=== PATIENT | female | born 1950 | race Caucasian/White ===

== ENCOUNTER → 2017-10-20 | Outpatient (CLI) | payer BC ==
--- NOTE | 2017-10-20 16:38 | CT ---
EXAMINATION TYPE: CT brain wo con DATE OF EXAM: 10/20/2017 COMPARISON: NONE HISTORY: 67-year-old female headache, migraine x3 days TECHNIQUE: Examination was done in axial plane without intravenous contrast. Coronal and sagittal r econstructions performed. CT DLP: 1138 mGycm Automated exposure control for dose reduction was used. FINDINGS: There is no evidence of acute intracranial hemorrhage, acute ischemic changes, mass, mass-effect, or extra-axial fluid collection. There is no effacement of cerebral sulci or basal subarachnoid cister ns. There is no hydrocephalus. There is no midline shift. Wiggins-white matter distinction is preserv ed. Paranasal sinuses and mastoid air cells well pneumatized. Orbits and globes are intact. IMPRESSION: No acute intracranial abnormality seen.
== END | disposition home or self-care (01) ==
LOC: RADCTMAIN 16:14
PROVIDERS: ATTEND Family Medicine
DX: R51 Headache (principal); Z88.0 Allergy status to penicillin
CPT/HCPCS: 70450

== ENCOUNTER → 2017-11-14 | Outpatient (CLI) | payer BC ==
--- NOTE | 2017-11-14 18:00 | US ---
EXAMINATION TYPE: US venous doppler duplex LE RT DATE OF EXAM: 11/14/2017 5:39 PM COMPARISON: NONE CLINICAL HISTORY: M79.604 Pain in right leg. SIDE PERFORMED: Right TECHNIQUE: The lower extremity deep venous system is examined utilizing real time linear array sonog mimi with graded compression, doppler sonography and color-flow sonography. VESSELS IMAGED: External Iliac Vein (EIV) Common Femoral Vein Deep Femoral Vein Greater Saphenous Vein * Femoral Vein Popliteal Vein Small Saphenous Vein * Proximal Calf Veins (* superficial vessels) Right Leg: Negative for DVT Bakers cyst measuring 6.2 x 1.6 x 3.1cm IMPRESSION: There is a popliteal cyst. No evidence of deep venous thrombosis in the right leg.
== END | disposition home or self-care (01) ==
LOC: RADUSMAIN 17:07
PROVIDERS: ATTEND Physician Assistant
DX: M71.21 Synovial cyst of popliteal space [Baker], right knee (principal)

== ENCOUNTER 2017-11-17 12:25 | Emergency (ER) | payer BC ==
[2017-11-17 13:01] VITALS: BP 160/75; PULSE 86; RESP 18; TEMP 98.6
--- NOTE | 2017-11-17 13:48 | ED ---
Extremity Problem HPI <Merrill Caputo - Last Filed: 11/17/17 14:12> - General Source: patient, RN notes reviewed Mode of arrival: ambulatory Limitations: no limitations <Clair Gupta - Last Filed: 11/17/17 14:18> - General Chief complaint: Extremity Problem,Nontraumatic Stated complaint: R Leg Pain Time Seen by Provider: 11/17/17 13:29 - History of Present Illness Initial comments: This is a 67-year-old female who presents to the emergency department with request for pain medication. Patient states that she has been having right lower extremity pain and swelling. Last Friday she had an ultrasound venous Doppler that revealed no evidence for an acute DVT. However, it did reveal a Coats's cyst. Patient states that she has an appointment with orthopedics scheduled for Friday. She states that her primary care provider prescribed her tramadol but that it has not been providing any relief. She states she has also been taking Tylenol and ibuprofen. Patient requests pain medication until she is able to follow-up with orthopedics on Friday. Patient denies any worsening of her symptoms. Denies fever, chills, chest pain, shortness of breath , abdominal pain, nausea or vomiting, constipation or diarrhea, dysuria or hematuria, numbness or tingling, headache or vision changes. (Clair Gupta) - Related Data Home Medications Medication Instructions Recorded Confirmed Aspirin [Adult Low Dose Aspirin EC] 81 mg PO QAM 11/30/15 11/30/15 Cetirizine HCl [Zyrtec] 5 mg PO QAM 11/30/15 11/30/15 Hydrochlorothiazide 25 mg PO QAM 11/30/15 11/30/15 Ibuprofen [Motrin] 200 mg PO Q8HR PRN 11/30/15 11/30/15 Krill/Om-3/Dha/Epa/Phospho/Ast 1 each PO 1800 11/30/15 11/30/15 [[place]-3 Krill Oil 300 mg Sfgl] Lisinopril [Zestril] 10 mg PO HS 11/30/15 11/30/15 Multivitamins, Thera [Multivitamin] 1 tab PO 1300 11/30/15 11/30/15 predniSONE [Prednisone] 5 mg PO Q48H 11/30/15 11/30/15 Allergies Allergy/AdvReac Type Severity Reaction Status Date / Time Penicillins Allergy Rash/Hives Verified 11/17/17 13:01 Review of Systems ROS Other: All systems not noted in ROS Statement are negative. <Merrill Caputo - Last Filed: 11/17/17 14:12> ROS Other: All systems not noted in ROS Statement are negative. <Clair Gupta - Last Filed: 11/17/17 14:18> ROS Statement: Those systems with pertinent positive or pertinent negative responses have been documented in the HPI. 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 History of Any Multi-Drug Resistant Organisms: None Reported Past Surgical History: Cholecystectomy, Hysterectomy, Orthopedic Surgery Additional Past Surgical History / Comment(s): sx: 1994 hysterectomy, bilateral knees scoped, biopsy to let nondenominational to confirm vascularitis Past Anesthesia/Blood Transfusion Reactions: Postoperative Nausea & Vomiting ( PONV) Past Psychological History: No Psychological Hx Reported Smoking Status: Never smoker Past Alcohol Use History: None Reported Past Drug Use History: None Reported - Past Family History Mother Additional Family Medical History / Comment(s): "TB at 20 but neg for 65 years until she passed" Father Additional Family Medical History / Comment(s): "scarlet fever at 16 & then had a heart condition after that" <Clair Gupta - Last Filed: 11/17/17 14:18> General Exam <Merrill Caputo - Last Filed: 11/17/17 14:12> Limitations: no limitations <Clair Gupta - Last Filed: 11/17/17 14:18> - General Exam Comments Initial Comments: General: Awake and alert, well-developed; in no apparent distress. Sitting on ED stretcher with right leg fully extended in front of her. HEENT: Head atraumatic, normocephalic. Pupils are equal, round and reactive to light. Extraocular movements intact. Oropharynx moist without erythema or exudate. Neck: Supple. Normal ROM. Cardiovascular: Regular rate and rhythm. No murmurs, rubs or gallops. Chest symmetrical. Respiratory: Lungs clear to auscultation bilaterally. No wheezes, rales or rhonchi. Normal respiratory effort with no use of accessory muscles. . Musculoskeletal: Normal range of motion of bilateral upper and lower extremities. There is tenderness on palpation at posterior lateral right knee. Sensation is intact. Pedal pulses are 2+ equal and palpable bilaterally. Skin: Dawson, warm and dry without rashes or lesions. Neurological: Alert and oriented x3. CN II-XII grossly intact. Speech is fluent and answers are appropriate. No focal neuro deficits. Psychiatric: Normal mood and affect. No overt signs of depression or anxiety noted. (Clair Gupta) Course <Merrill Caputo - Last Filed: 11/17/17 14:12> <Clair Gupta - Last Filed: 11/17/17 14:18> Vital Signs 11/17/17 12:58 Temperature 98.6 F Pulse Rate 86 Respiratory 18 Rate Blood Pressure 160/75 O2 Sat by Pulse 98 Oximetry - Reevaluation(s) Reevaluation #1: 11/17/17 14:12 PA supervision did personally do a [id number] evaluation the patient did discuss findings with her. She does demonstrate tenderness palpation over the knee consistent with a Coats's cyst. She does have an appointment in [address] Cavanaugh. She will be given appropriate pain medication she is a follow- up as planned. (Merrill Caputo) Medical Decision Making <Merrill Caputo - Last Filed: 11/17/17 14:12> <Clair Gupta - Last Filed: 11/17/17 14:18> - Medical Decision Making This is a 67-year-old female who presents to the emergency department with request for pain medication. Patient states that she was diagnosed with a Coats 's cyst in her right lower extremity last Friday. She has a follow-up appointment with orthopedics scheduled for this . Patient states that her prescription of tramadol is not providing any relief. This case was discussed with attending physician, Dr. Caputo who also evaluated the patient. She will be given a Tylenol #3 starter pack. She is to follow-up with Dr. Cavanaugh on Friday as scheduled. Patient is in no acute distress and will be discharged home. She is in agreement and voices understanding. All questions were answered. (Clair Gupta) Disposition <Merrill Caputo - Last Filed: 11/17/17 14:12> Time of Disposition: : <Clair Gupta - Last Filed: 11/17/17 14:18> Clinical Impression: Bakers cyst Disposition: HOME SELF-CARE Condition: Good Instructions: Bakers Cyst (ED) Additional Instructions: Please take medications as prescribed. Please follow up with Dr. Cavanaugh on Friday as scheduled. Please follow up with primary care provider within 1-2 days. Return to emergency department if symptoms should worsen or any concerns arise. Referrals: Felice Watters MD [Primary Care Provider] - 1-2 days
[2017-11-17] MEDS ORDERED: ACET/COD 300 MG/30 MG STARTER PACK 6 TAB BTL PO STA (14:12)
== END 2017-11-17 14:39 | disposition home or self-care (01) ==
LOC: EC 12:25
DX: M71.21 Synovial cyst of popliteal space [Baker], right knee (principal); I10 Essential (primary) hypertension; Z98.890 Other specified postprocedural states; Z88.0 Allergy status to penicillin; Z79.82 Long term (current) use of aspirin; Z79.52 Long term (current) use of systemic steroids; Z79.899 Other long term (current) drug therapy
CPT/HCPCS: 99283

== ENCOUNTER → 2017-12-04 | Outpatient (CLI) | payer BC ==
--- NOTE | 2017-12-04 08:36 | MR ---
EXAMINATION TYPE: MR knee RT wo con DATE OF EXAM: 12/04/2017 COMPARISON: No comparison images are available. HISTORY: Cyst on right knee, knee pain TECHNIQUE: Multiplanar, multisequence imaging of the right knee is performed without IV contrast. FINDINGS: MEDIAL MENISCUS: There is linear signal nearly paralleling the inferior surface of the posterior horn medial meniscus compatible with a long oblique tear. This appears to communicate with the inferior a rticular surface. Anterior horn of the medial meniscus appears intact. LATERAL MENISCUS: There is complex signal within the anterior horn lateral meniscus compatible with c omplex tear. This may communicate with the superior articular surface. Mild increased signals within the anterior portion of the posterior horn lateral meniscus may be some internal derangement or degen erative change. CRUCIATE LIGAMENTS: The anterior and posterior cruciate ligaments are intact and unremarkable. COLLATERAL LIGAMENTS: The medial collateral ligament and lateral collateral ligament complex are inta ct and unremarkable. EXTENSOR MECHANISM: Visualized quadriceps and patellar tendons are intact. EFFUSION: There is a moderate joint effusion present. POPLITEAL CYST: A 6.1 x 1.3 cm popliteal cyst is present. Note is made of some mild fluid in the sof t tissues of the popliteal space superiorly. A ruptured cyst is not excluded. TRICOMPARTMENT SPACES: OsteoArthritic degenerative type changes present within the medial and lateral compartments. Medial and lateral femoral condylar spurring is noted. Some medial tibial plateau spur ring is present. CARTILAGE: There is diffuse thinning of the articular cartilage throughout 3 compartment spaces. BONE MARROW SIGNAL: No focal abnormal marrow signal is appreciated. OTHER: No additional significant abnormality is appreciated. IMPRESSION: 1. Long oblique tear posterior horn medial meniscus. 2. Complex tear anterior horn lateral meniscus. 3. Moderate to large joint effusion. 4. Popliteal cyst. 5. Diffuse osteoarthritic degenerative change throughout the knee. This appears to be at least modera te within the medial and lateral compartments and may be slightly milder in the patellofemoral joint space.
== END ==
LOC: RADMRIMAIN 07:01
PROVIDERS: ATTEND Family Medicine
DX: S83.241A Other tear of medial meniscus, current injury, right knee, initial encounter (principal); S83.271A Complex tear of lateral meniscus, current injury, right knee, initial encounter; M71.21 Synovial cyst of popliteal space [Baker], right knee; M17.11 Unilateral primary osteoarthritis, right knee

== ENCOUNTER → 2017-12-08 | Outpatient (CLI) | payer BC ==
[2017-12-08 17:58] LABS: Basophils % (A) 0 %; Eosinophils % (A) 1 %; HCT 36.2 % (34.0-46.0); HGB 12.2 gm/dL (11.4-16.0); Lymphocytes % (A) 15 %; MCHC 33.7 g/dL (31.0-37.0); MCV 88.9 fL (80.0-100.0); Monocytes # (A) 0.3 k/uL (0-1.0); Monocytes % (A) 4 %; Neutrophils # (A) 5.4 k/uL (1.3-7.7); Neutrophils % (A) 79 %; Platelet Count 373 k/uL (150-450); RBC 4.07 m/uL (3.80-5.40); RDW 12.9 % (11.5-15.5); WBC 6.8 k/uL (3.8-10.6)
[2017-12-08 18:10] LABS: Potassium 4.2 mmol/L (3.5-5.1)
[2017-12-08 18:14] LABS: INR 0.9 (<1.2); Prothrombin Time 9.4 sec (9.0-12.0)
== END | disposition home or self-care (01) ==
LOC: LABPAT 16:58
PROVIDERS: ATTEND Orthopaedic Surgery
DX: Z01.818 Encounter for other preprocedural examination (principal); R94.31 Abnormal electrocardiogram [ECG] [EKG]; I51.7 Cardiomegaly; M23.91 Unspecified internal derangement of right knee; Z79.01 Long term (current) use of anticoagulants; Z01.812 Encounter for preprocedural laboratory examination
CPT/HCPCS: 36415; 80051; 85025; 85610; 93005

== ENCOUNTER 2017-12-12 07:28 | Day surgery (SDC) | payer BC ==
[2017-12-10 11:54] VITALS: BMI 29.3
--- NOTE | 2017-12-11 09:15 | HP ---
HISTORY AND PHYSICAL CHIEF COMPLAINT: Right knee pain. HISTORY OF PRESENT ILLNESS: The patient is a 67-year-old retired female who presents with progressive right knee pain for the past several months. It has worsened over the past several weeks. She notes intermittent locking and giving way. She also notes swelling and stiffness. She has tried medications in addition to an injection with only partial temporary relief. She is ambulating with a cane and limping. She notes she is significantly limited. PAST MEDICAL HISTORY: Past medical history is significant for hypertension as vasculitis. PAST SURGICAL HISTORY: Negative. CURRENT MEDICATIONS: 1. Ibuprofen. 2. Aspirin. 3. Prednisone. 4. Toprol. ALLERGIES: She has allergies to PENICILLIN. FAMILY HISTORY: Significant for cancer. SOCIAL HISTORY: Negative for current tobacco or alcohol use. REVIEW OF SYSTEMS: Sixteen-point review of systems otherwise reviewed and is noncontributory. PHYSICAL EXAMINATION: On examination, the patient is approximately 5 feet 6 inches, 188 pounds of endomorphic habitus. HEENT exam is nonfocal. Neck is supple. She has painless passive motion of the right hip. Straight leg raise is negative. Active motion right knee -8 to 105 degrees of flexion. She has a moderate effusion. She is tender about the medial and lateral joint line. Collaterals are stable, Amy's negative, Argenis's elicits medial and lateral pain. She does have an antalgic gait pattern. Her distal neurovascular exam appears intact in the right lower extremity. MRI report for the right knee from 12/04/2017 shows a posterior medial meniscal tear along with an anterior lateral meniscal tear. Tricompartmental degenerative changes are noted. Previous x-rays show evidence of calcification of the medial and lateral menisci. IMPRESSION: 1. Internal derangement, right knee with symptomatic medial and lateral meniscal tears. 2. Right knee moderate tricompartmental osteoarthrosis. 3. Right knee chondrocalcinosis. 4. History of vasculitis. RECOMMENDATIONS: I talked to the patient at length regarding her condition and treatment options. At this point, she is quite symptomatic, having pain and mechanical symptoms despite conservative measures. After thorough discussion, she opts to proceed with surgery. We will plan to proceed with arthroscopic evaluation with possible partial medial and lateral meniscectomy. Risks and benefits were discussed at length in layman's terms. We will likely perform that as an outpatient procedure. MMODL / IJN: [id number] /
[~2017-12-12 07:28] MED LIST: DEXAMETHASONE SOD PHOSPHATE 10 MG/ML 1 ML VIAL IV ONE; LACTATED RINGERS 1,000 ML IV ONE; LIDOCAINE 1% 20 ML VIAL (10MG/ML) FOR IV START INTRADERMA PRN; MIDAZOLAM 2 MG/2 ML VIAL IV PRN; MORPHINE SULFATE 4 MG/ML SYRINGE IV PRN; ONDANSETRON 4 MG/2 ML VIAL IVP ONE; SCOPOLAMINE 1.5MG/72HR PATCH TRANSDERM ONE; ceFAZolin IN SWFI 2 GM/20 ML SYRINGE IVP ONE
[2017-12-12 08:09] VITALS: TEMP 97.9
[2017-12-12 08:20] LABS: Glucose,Whole Blood 90 mg/dL (75-99)
[2017-12-12] MEDS ORDERED: CLINDAMYCIN 600 MG in DEXTROSE 5% IN WATER 50 ML IVPB STA ×2 (08:29)
[2017-12-12] MEDS ORDERED: HYDROCORTISONE SUCCINATE 100 MG/2 ML VIAL IVP ONE (08:55)
[2017-12-12] MEDS ORDERED: MIDAZOLAM 2 MG/2 ML VIAL ONE (09:22)
[2017-12-12] MEDS ORDERED: PROPOFOL 10 MG/ML 20 ML VIAL IV ONE (09:22)
[2017-12-12] MEDS ORDERED: fentaNYL (PF) 50 MCG/ML 2 ML AMP ONE (09:22)
[2017-12-12] MEDS ORDERED: LIDOCAINE 1% INJ 10MG/ML (20 ML MDV) ONE (09:22)
[2017-12-12] MEDS ORDERED: KETOROLAC 30 MG/ML 1 ML VIAL ONE (09:22)
[2017-12-12] MEDS ORDERED: SUCCINYLCHOLINE CHLORIDE 100 MG/5 ML SYR IV ONE (09:22)
[2017-12-12] MEDS ORDERED: EPINEPHrine (PF) 1 ML in SODIUM CHLORIDE 0.9% IRRIGATIO 3,000 ML IRRIGATION ONE (09:42)
[2017-12-12 10:24] VITALS: RESP 16
--- NOTE | 2017-12-12 10:24 | P.OP ---
Date of Procedure: 12/12/17 Preoperative Diagnosis: Right knee internal derangement Postoperative Diagnosis: Right knee posterior medial meniscal tear/middle one third lateral meniscal tear /chondrocalcinosis-synovitis/grade 2 chondral injury medial patellar facet Procedure(s) Performed: Right knee arthroscopic partial medial meniscectomy/partial lateral meniscectomy /synovectomy of the medial, lateral, and patellofemoral compartments/patellar chondroplasty Anesthesia: GETA Surgeon: Haja Cavanaugh Estimated Blood Loss (ml): 10 Pathology: none sent Condition: stable Disposition: PACU Indications for Procedure: The patient's a 67-year-old female presents with progressive right knee pain and mechanical symptoms despite conservative measures. A discussion of the risks and benefits of operative intervention versus continued conservative measures was made with patient. She opted to proceed with surgery. Operative risks to include infection, neurovascular injury, development of blood clots, possible incomplete resolution of symptoms, possible worsening symptoms and need for subsequent procedures was discussed. Informed consent was obtained. Operative Findings: As below Description of Procedure: The patient was brought to the operating room, and after induction of general anesthesia examined the right knee. Collaterals were stable, Amy was negative, and posterior drawer was negative. The right lower extremity was prepped and draped in normal fashion. A superior lateral portal was made through a 3 mm skin incision superior and lateral to the patella. This was used for outflow. A moderate effusion was encountered. A lateral portal was made through a 5 mm vertical skin incision lateral to the patella tendon above the joint. Diagnostic arthroscopy was performed. A medial portal was made through a similar incision medial to the patella tendon above the joint line. On inspection of the medial compartment, a complex tear involving the posterior horn of the medial meniscus was noted in the white-white junction. This was debrided back to stable base with straight baskets and a motorized shaver. Diffuse grade 2-3 chondral changes were noted in the medial compartment. Chondrocalcinosis was noted diffusely. Reactive synovitis involving the anterior medial, anterolateral, and patellofemoral compartments was noted. This is debrided with motorized shaver. On inspection of the notch, the anterior cruciate ligament appeared to be intact. On inspection of the lateral compartment, a complex tear involving the middle one third of the lateral meniscus in the white-white junction was noted. This debrided back to stable base with straight baskets and a motorized shaver. Mild degenerative changes were noted diffusely in the lateral compartment. On inspection of the patellofemoral articulation, a grade 2-3 chondral injury was noted involving the medial patella facet. The loose chondral fragment was debrided back to a stable base with a motorized shaver. The gutters were clear debris. The knee was then thoroughly irrigated. The portals were closed with Steri-Strips. A sterile dressing was applied in addition to a compression stocking.
[2017-12-12] MEDS ORDERED: diphenhydrAMINE 50 MG/ML 1 ML VIAL IVP ONE (10:32)
[2017-12-12] MEDS ORDERED: MEPERIDINE 50 MG/ML SYRINGE IVP ONE (10:44)
[2017-12-12 12:16] VITALS: BP 137/78; PULSE 78
== END 2017-12-12 13:06 | disposition home or self-care (01) ==
LOC: OR 07:28
PROVIDERS: ATTEND Orthopaedic Surgery
DX: S83.231A Complex tear of medial meniscus, current injury, right knee, initial encounter (principal); S83.271A Complex tear of lateral meniscus, current injury, right knee, initial encounter; X58.XXXA Exposure to other specified factors, initial encounter; M17.11 Unilateral primary osteoarthritis, right knee; M11.261 Other chondrocalcinosis, right knee; M65.861 Other synovitis and tenosynovitis, right lower leg; I10 Essential (primary) hypertension; I77.6 Arteritis, unspecified; Z79.1 Long term (current) use of non-steroidal anti-inflammatories (NSAID); Z79.82 Long term (current) use of aspirin; Z79.52 Long term (current) use of systemic steroids; Z79.899 Other long term (current) drug therapy; Z88.0 Allergy status to penicillin
CPT/HCPCS: 29880; J2250; J2270; J1200; J1100; J1720; J2175; J2405; J0171; J2001; J3010; J1885; J0330; J2704

== ENCOUNTER → 2018-01-09 | Outpatient (CLI) | payer BC ==
--- NOTE | 2018-01-09 14:44 | XR ---
EXAMINATION TYPE: XR chest 2V DATE OF EXAM: 01/09/2018 COMPARISON: 01/02/2016 HISTORY: Shortness of breath TECHNIQUE: Frontal and lateral views of the chest are obtained. FINDINGS: Scattered senescent parenchymal changes noted. No evidence for infiltrate. No evidence for atelectasis. Heart size is stable. Mediastinal structures are stable and grossly unremarkable. No evidence for hilar prominence. Degenerative changes dorsal spine. IMPRESSION: 1. No evidence for acute pulmonary disease.
== END | disposition home or self-care (01) ==
LOC: RADXRMAIN 14:24
PROVIDERS: ATTEND Family Medicine
DX: J18.9 Pneumonia, unspecified organism (principal)
CPT/HCPCS: 71046

== ENCOUNTER 2018-01-15 19:08 | Emergency (ER) | payer MEDICARE, BC ==
[2018-01-15 19:14] VITALS: RESP 18
[2018-01-15] MEDS ORDERED: SODIUM CHLORIDE 0.9% 1,000 ML IV STA ×2 (19:56)
--- NOTE | 2018-01-15 19:59 | ED ---
Extremity Problem HPI - General Source: patient, family, RN notes reviewed, old records reviewed Mode of arrival: wheelchair Limitations: no limitations - History of Present Illness MD Complaint: extremity pain, other <Merrill Caputo - Last Filed: 01/15/18 21:21> <Gilbert Duque - Last Filed: 01/15/18 23:23> - General Chief complaint: Extremity Problem,Nontraumatic Stated complaint: pain in both legs Time Seen by Provider: 01/15/18 19:41 - History of Present Illness Initial comments: This is a 68-year-old female who was just discharged yesterday from the hospital after being diagnosed with influenza apparently she was treated for pneumonia before that who states she got home yesterday before she went home and was discharged she has some burning left knee pain now she states today she' s yet right knee pain is burning and worsened left knee. She states she has difficulty with ambulation because of this pain. She states she was on a toilet and could not get up. She also was noted have a fever when she was admitted today. No nausea no vomiting no other symptoms. No trauma reported she does states she had low back surgery in the past she does state that her back hurts and her hip surgery discussion a right she believes is secondary to the bed that she was in. No urinary or fecal incontinence. No other modifying factors she is very anxious and does also complain that she may have a blood clot in her lower extremities (Merrill Caputo) - Related Data Home Medications Medication Instructions Recorded Confirmed Aspirin [Adult Low Dose Aspirin EC] 81 mg PO QAM 11/30/15 01/15/18 Cetirizine HCl [Zyrtec] 5 mg PO QAM PRN 11/30/15 01/15/18 Ibuprofen [Motrin] 400 mg PO Q8HR PRN 11/30/15 01/15/18 Krill/Om-3/Dha/Epa/Phospho/Ast 1 cap PO DAILY@1800 11/30/15 01/15/18 [[place]-3 Krill Oil 300 mg Sfgl] Multivitamins, Thera [Multivitamin 1 tab PO DAILY 11/30/15 01/15/18 (formulary)] predniSONE [Prednisone] 5 mg PO Q48H 11/30/15 01/15/18 Metoprolol Succinate [Toprol XL] 50 mg PO QAM 12/10/17 01/15/18 Hydrocodone/Acetaminophen [[place] 1 tab PO Q6HR PRN 01/10/18 01/15/18 5-325] Previous Rx's Medication Instructions Recorded Oseltamivir [Tamiflu] 75 mg PO Q12HR #4 cap 01/14/18 guaiFENesin-Coden 100-10MG/5ML 10 ml PO Q6H PRN cup 01/14/18 [Robitussin AC] Allergies Allergy/AdvReac Type Severity Reaction Status Date / Time Penicillins Allergy Rash/Hives Verified 01/15/18 20:14 Review of Systems ROS Other: All systems not noted in ROS Statement are negative. <Merrill Caputo - Last Filed: 01/15/18 21:21> ROS Other: All systems not noted in ROS Statement are negative. <Gilbert Duque - Last Filed: 01/15/18 23:23> ROS Statement: Those systems with pertinent positive or pertinent negative responses have been documented in the HPI. 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 Past Anesthesia/Blood Transfusion Reactions: Postoperative Nausea & Vomiting ( PONV) Past Psychological History: No Psychological Hx Reported Smoking Status: Never smoker Past Alcohol Use History: None Reported Past Drug Use History: None Reported - Past Family History Mother Additional Family Medical History / Comment(s): "TB at 20 but neg for 65 years until she passed" Father Additional Family Medical History / Comment(s): "scarlet fever at 16 & then had a heart condition after that" Brother(s) Family Medical History: Cancer Additional Family Medical History / Comment(s): jaw <Merrill Caputo - Last Filed: 01/15/18 21:21> General Exam Limitations: no limitations General appearance: anxious Head exam: Present: atraumatic, normocephalic, normal inspection Eye exam: Present: normal appearance, PERRL, EOMI. Absent: scleral icterus, conjunctival injection, periorbital swelling ENT exam: Present: mucous membranes dry Neck exam: Present: normal inspection. Absent: tenderness, meningismus, lymphadenopathy Respiratory exam: Present: normal lung sounds bilaterally. Absent: respiratory distress, wheezes, rales, rhonchi, stridor Cardiovascular Exam: Present: regular rate, normal rhythm, normal heart sounds. Absent: systolic murmur, diastolic murmur, rubs, gallop, clicks GI/Abdominal exam: Present: soft, normal bowel sounds. Absent: distended, tenderness, guarding, rebound, rigid Extremities exam: Present: full ROM, normal capillary refill, other ( Examination of the knees reveal no overt tenderness over the left knee radiates with some swelling post meniscal surgery several weeks ago.). Absent: tenderness, pedal edema, joint swelling, calf tenderness Back exam: Present: normal inspection, full ROM, tenderness (Some tenderness over the bilateral SI joints.). Absent: CVA tenderness (R), CVA tenderness (L) , muscle spasm, paraspinal tenderness, vertebral tenderness, rash noted Neurological exam: Present: alert, oriented X3, CN II-XII intact Psychiatric exam: Present: normal affect, normal mood Skin exam: Present: warm, dry, intact, normal color. Absent: rash <Mrerill Caputo - Last Filed: 01/15/18 21:21> <Gilbert Duque - Last Filed: 01/15/18 23:23> - General Exam Comments Initial Comments: This is a well-developed well-nourished awake alert anxious appearing female patient was noted be hyperventilating. (Merrill Caputo) Course <Merrill Caputo - Last Filed: 01/15/18 21:21> <Gilbert Duque - Last Filed: 01/15/18 23:23> Vital Signs 01/15/18 01/15/18 01/15/18 19:10 20:40 22:01 Temperature 101.7 F H 99.3 F Pulse Rate 99 82 Respiratory 18 18 Rate Blood Pressure 114/68 145/65 O2 Sat by Pulse 96 98 Oximetry - Reevaluation(s) Reevaluation #1: 01/15/18 21:21 Patient is demonstrated evidence of hypokalemia as well as low normal magnesium and she'll get IV supplementation. The case will be endorsed to Dr. Duque who will make about disposition (Merrill Caputo) Medical Decision Making - Lab Data Result diagrams: 01/15/18 20:13 01/15/18 20:13 <Merrill Caputo - Last Filed: 01/15/18 21:21> - Lab Data Result diagrams: 01/15/18 20:13 01/15/18 20:13 <Gilbert Duque - Last Filed: 01/15/18 23:23> - Lab Data Lab Results 01/15/18 01/15/18 01/15/18 Range/Units 20:13 20:13 20:13 WBC 7.9 (3.8-10.6) k/uL RBC 4.00 (3.80-5.40) m/uL Hgb 11.7 (11.4-16.0) gm/dL Hct 34.5 (34.0-46.0) % MCV 86.3 (80.0-100.0) fL MCH 29.4 (25.0-35.0) pg MCHC 34.0 (31.0-37.0) g/dL RDW 13.7 (11.5-15.5) % Plt Count 240 (150-450) k/uL Neutrophils % 73 % Lymphocytes % 19 % Monocytes % 6 % Eosinophils % 1 % Basophils % 0 % Neutrophils # 5.8 (1.3-7.7) k/uL Lymphocytes # 1.5 (1.0-4.8) k/uL Monocytes # 0.5 (0-1.0) k/uL Eosinophils # 0.1 (0-0.7) k/uL Basophils # 0.0 (0-0.2) k/uL Sodium 138 (137-145) mmol/L Potassium 3.3 L (3.5-5.1) mmol/L Chloride 100 (98-107) mmol/L Carbon Dioxide 26 (22-30) mmol/L Anion Gap 12 mmol/L BUN 14 (7-17) mg/dL Creatinine 0.70 (0.52-1.04) mg/dL Est GFR (CKD-EPI)AfAm >90 (>60 ml/min/1.73 sqM) Est GFR (CKD-EPI)NonAf 90 (>60 ml/min/1.73 sqM) Glucose 108 H (74-99) mg/dL Calcium 8.9 (8.4-10.2) mg/dL Magnesium 1.7 (1.6-2.3) mg/dL Total Bilirubin 0.9 (0.2-1.3) mg/dL AST 33 (14-36) U/L ALT 38 (9-52) U/L Alkaline Phosphatase 116 (38-126) U/L Total Creatine Kinase 27 L (30-135) U/L CK-MB (CK-2) <0.2 (0.0-2.4) ng/mL CK-MB (CK-2) Rel Index Total Protein 6.4 (6.3-8.2) g/dL Albumin 3.9 (3.5-5.0) g/dL Urine Color Urine Appearance (Clear) Urine pH (5.0-8.0) Ur Specific [place] (1.001-1.035) Urine Protein (Negative) Urine Glucose (UA) (Negative) Urine Ketones (Negative) Urine Blood (Negative) Urine Nitrite (Negative) Urine Bilirubin (Negative) Urine Urobilinogen (<2.0) mg/dL Ur Leukocyte Esterase (Negative) Urine RBC (0-5) /hpf Urine WBC (0-5) /hpf Ur Squamous Epith Cells (0-4) /hpf Urine Mucus (None) /hpf 01/15/18 Range/Units 20:35 WBC (3.8-10.6) k/uL RBC (3.80-5.40) m/uL Hgb (11.4-16.0) gm/dL Hct (34.0-46.0) % MCV (80.0-100.0) fL MCH (25.0-35.0) pg MCHC (31.0-37.0) g/dL RDW (11.5-15.5) % Plt Count (150-450) k/uL Neutrophils % % Lymphocytes % % Monocytes % % Eosinophils % % Basophils % % Neutrophils # (1.3-7.7) k/uL Lymphocytes # (1.0-4.8) k/uL Monocytes # (0-1.0) k/uL Eosinophils # (0-0.7) k/uL Basophils # (0-0.2) k/uL Sodium (137-145) mmol/L Potassium (3.5-5.1) mmol/L Chloride (98-107) mmol/L Carbon Dioxide (22-30) mmol/L Anion Gap mmol/L BUN (7-17) mg/dL Creatinine (0.52-1.04) mg/dL Est GFR (CKD-EPI)AfAm (>60 ml/min/1.73 sqM) Est GFR (CKD-EPI)NonAf (>60 ml/min/1.73 sqM) Glucose (74-99) mg/dL Calcium (8.4-10.2) mg/dL Magnesium (1.6-2.3) mg/dL Total Bilirubin (0.2-1.3) mg/dL AST (14-36) U/L ALT (9-52) U/L Alkaline Phosphatase (38-126) U/L Total Creatine Kinase (30-135) U/L CK-MB (CK-2) (0.0-2.4) ng/mL CK-MB (CK-2) Rel Index Total Protein (6.3-8.2) g/dL Albumin (3.5-5.0) g/dL Urine Color Yellow Urine Appearance Clear (Clear) Urine pH 6.5 (5.0-8.0) Ur Specific [place] 1.024 (1.001-1.035) Urine Protein 1+ H (Negative) Urine Glucose (UA) Negative (Negative) Urine Ketones Negative (Negative) Urine Blood Trace H (Negative) Urine Nitrite Negative (Negative) Urine Bilirubin Negative (Negative) Urine Urobilinogen 2.0 (<2.0) mg/dL Ur Leukocyte Esterase Negative (Negative) Urine RBC 12 H (0-5) /hpf Urine WBC 1 (0-5) /hpf Ur Squamous Epith Cells 7 H (0-4) /hpf Urine Mucus Occasional H (None) /hpf Disposition <Merrill Caputo - Last Filed: 01/15/18 21:21> Is patient prescribed a controlled substance at d/c from ED?: No <Gilbert Duque - Last Filed: 01/15/18 23:23> Clinical Impression: Knee pain, Hypokalemia Disposition: HOME SELF-CARE Condition: Fair Instructions: Knee Pain (ED), Hypokalemia (ED) Referrals: Felice Watters MD [Primary Care Provider] - 1-2 days
[2018-01-15 20:23] LABS: Basophils % (A) 0 %; Eosinophils # (A) 0.1 k/uL (0-0.7); Eosinophils % (A) 1 %; HCT 34.5 % (34.0-46.0); HGB 11.7 gm/dL (11.4-16.0); Lymphocytes # (A) 1.5 k/uL (1.0-4.8); Lymphocytes % (A) 19 %; MCH 29.4 pg (25.0-35.0); MCV 86.3 fL (80.0-100.0); Mean Platelet Volume 6.8; Monocytes # (A) 0.5 k/uL (0-1.0); Monocytes % (A) 6 %; Neutrophils # (A) 5.8 k/uL (1.3-7.7); Neutrophils % (A) 73 %; Platelet Count 240 k/uL (150-450); RDW 13.7 % (11.5-15.5); WBC 7.9 k/uL (3.8-10.6)
[2018-01-15 20:33] LABS: ALT 38 U/L (9-52); AST 33 U/L (14-36); Albumin 3.9 g/dL (3.5-5.0); Alkaline Phosphatase 116 U/L (38-126); Anion Gap 12 mmol/L; Blood Urea Nitrogen 14 mg/dL (7-17); Calcium 8.9 mg/dL (8.4-10.2); Carbon Dioxide 26 mmol/L (22-30); Chloride 100 mmol/L (98-107); Glucose 108 mg/dL (74-99); Magnesium 1.7 mg/dL (1.6-2.3); Potassium 3.3 mmol/L (3.5-5.1); Sodium 138 mmol/L (137-145); Total Bilirubin 0.9 mg/dL (0.2-1.3); Total Protein 6.4 g/dL (6.3-8.2)
[2018-01-15 20:37] LABS: Creatine Kinase 27 U/L (30-135)
[2018-01-15 20:40] VITALS: TEMP 99.3
[2018-01-15 20:47] LABS: Creatine Kinase MB <0.2 ng/mL (0.0-2.4)
[2018-01-15 20:50] LABS: Appearance,Urine Clear (Clear); Bilirubin,Urine Negative (Negative); Blood,Urine Trace (Negative); Color,Urine Yellow; Glucose,Urine (UA) Negative (Negative); Ketones,Urine Negative (Negative); Leukocyte Esterase,Urine Negative (Negative); Mucus,Urine Occasional /hpf; Nitrite,Urine Negative (Negative); PH, Urine 6.5 (5.0-8.0); Protein,Urine 1+ (Negative); RBC,Urine 12 /hpf (0-5); Specific Gravity,Urine 1.024 (1.001-1.035); Squamous Epithelial Cell,Urine 7 /hpf (0-4); WBC,Urine 1 /hpf (0-5)
[2018-01-15] MEDS ORDERED: MAGNESIUM SULFATE-D5W PMX 1 GM in DEXTROSE/WATER 1 100ML.BAG IVPB ONE (21:20)
[2018-01-15] MEDS ORDERED: POTASSIUM CHLORIDE ER 20 MEQ TAB.ER PO STA (21:20)
[2018-01-15] MEDS ORDERED: ONDANSETRON ODT 4 MG TAB PO STA (21:57)
[2018-01-15 22:02] VITALS: BP 145/65; PULSE 82
== END 2018-01-15 23:35 | disposition home or self-care (01) ==
LOC: EC 19:08
DX: E87.6 Hypokalemia (principal); M25.561 Pain in right knee; M25.562 Pain in left knee; I10 Essential (primary) hypertension; E78.5 Hyperlipidemia, unspecified; Z79.52 Long term (current) use of systemic steroids; Z79.82 Long term (current) use of aspirin; Z79.899 Other long term (current) drug therapy; Z88.0 Allergy status to penicillin
CPT/HCPCS: 36415; 80053; 82550; 82553; 83735; 85025; 81001; 87040; 99284; 96365; 96361 ×2; J3475

== ENCOUNTER → 2018-02-16 | Outpatient (CLI) | payer BC ==
--- NOTE | 2018-02-17 07:38 | ECHOF ---
Referral Reason:I10 Essential primary hypertension MEASUREMENTS -------- HEIGHT: 167.6 cm WEIGHT: 81.2 kg BP: 173/88 RVIDd: 3.2 cm (< 3.3) IVSd: 1.2 cm (0.6 - 1.1) LVIDd: 4.6 cm (3.9 - 5.3) LVPWd: 1.3 cm (0.6 - 1.1) IVSs: 1.4 cm LVIDs: 3.7 cm LVPWs: 1.5 cm LAESV Index (A-L): 24.53 ml/m Ao Diam: 3.2 cm (2.0 - 3.7) AV Cusp: 2.2 cm (1.5 - 2.6) LA Diam: 4.1 cm (2.7 - 3.8) EPSS: 1.1 cm MV E Oliver: 0.63 m/s MV DecT: 255 ms MV A Oliver: 0.78 m/s MV E/A Ratio: 0.80 RAP: 5.00 mmHg RVSP: 21.82 mmHg MV EF SLOPE: 92.90 mm/s (70 - 150) MV EXCURSION: 1.93 cm (> 18.000) FINDINGS -------- Sinus rhythm. This was a technically adequate study. The left ventricular size is normal. There is mild concentric left ventricular hypertrophy. Overa ll left ventricular systolic function is low-normal with, an EF between 50 - 55 %. The right ventricle is normal in size and function. Normal LA size by volume 22+/-6 ml/m2. RA appears enlarged. Aortic valve is trileaflet and is mildly thickened. There is no evidence of aortic regurgitation. There is no evidence of aortic stenosis. The mitral valve leaflets are mildly thickened. There is trace to mild mitral regurgitation. Trace tricuspid regurgitation present. Right ventricular systolic pressure is normal at < 35 mmHg. There is no evidence of pulmonary hypertension. Trace/mild (physiologic) pulmonic regurgitation. The aortic root size is normal. Normal inferior vena cava with normal inspiratory collapse consistent with estimated right atrial pre ssure of 5 mmHg. There is no pericardial effusion. CONCLUSIONS -------- 1. Sinus rhythm. 2. This was a technically adequate study. 3. The left ventricular size is normal. 4. There is mild concentric left ventricular hypertrophy. 5. Overall left ventricular systolic function is low-normal with, an EF between 50 - 55 %. 6. Normal LA size by volume 22+/-6 ml/m2. 7. RA appears enlarged. 8. Aortic valve is trileaflet and is mildly thickened. 9. The mitral valve leaflets are mildly thickened. 10. There is trace to mild mitral regurgitation. 11. Trace tricuspid regurgitation present. 12. Right ventricular systolic pressure is normal at < 35 mmHg. 13. There is no evidence of pulmonary hypertension. 14. Trace/mild (physiologic) pulmonic regurgitation. 15. The aortic root size is normal. 16. There is no pericardial effusion. CELL CHANGER: Jude Patel RDCS
== END | disposition home or self-care (01) ==
LOC: RADECHMAIN 15:44
PROVIDERS: ATTEND Family Medicine
DX: I08.1 Rheumatic disorders of both mitral and tricuspid valves (principal); I11.9 Hypertensive heart disease without heart failure
CPT/HCPCS: 93306

== ENCOUNTER → 2018-06-09 | Outpatient (CLI) | payer BC ==
--- NOTE | 2018-06-10 15:08 | BD ---
EXAMINATION TYPE: Axial Bone Density DATE OF EXAM: 06/09/2018 COMPARISON: 12/08/2002 CLINICAL HISTORY: 68-year-old female postmenopausal screening Height: 64.5 IN Weight: 193 LBS FRAX RISK QUESTIONS: Family History (Parent hip fracture): YES MOTHER Glucocorticoids (More than 3mos): YES 5 MG EVERY OTHER DAY FOR 3 YEARS (Ex: prednisone, prednisolone, methylprednisolone, dexamethasone, and hydrocortisone). RISK FACTORS HISTORY OF: Active: YES Postmenopausal woman: AGE 46 MEDICATIONS: Prednisone or other steroids: YES 5 MG EVERY OTHER DAY FOR 3 YEARS Additional Medications: MULTI VIT, PREDNISONE 5 MG EVERY OTHER DAY, BLOOD PRESSURE MEDS,MOTRIN, 81 MG ASPIRIN, CRESTOR, EXAM MEASUREMENTS: Bone mineral densitometry was performed using the [employer] System. Bone mineral density as measured about the Lumbar spine is: ----- L1-L4(G/cm2): 1.333 T Score Values are as follows: ----- L2: 1.6 ----- L3: 1.1 ----- L4: 1.7 ----- L1-L4: 1.3 Bone mineral density has: Increased 7.4% since study of: 12/08/2002 Bone mineral density about the R hip (g/cm2): 0.876 Bone mineral density about the L hip (g/cm2): 0.897 T Score values are as follows: -----R Neck: -1.2 -----L Neck: -1.0 -----R Total: -0.6 -----L Total: -0.6 Bone mineral density has: Decreased -2.9% since study of: 12/08/2002 IMPRESSION: Osteopenia (T Score between -2.5 and -1). There is slightly increased risk of fracture and the patient may be considered for treatment. Re-Screen 2-5 years. NOTE: T-SCORE=SD OF THE YOUNG ADULT MEAN.
--- NOTE | 2018-06-11 13:08 | MM ---
Reason for exam: screening (asymptomatic). Last mammogram was performed 10 years and 7 months ago. History: Patient is postmenopausal. Family history of breast cancer in aunt at age 65. Benign excisional biopsy of the left breast, 2001. Excisional biopsy of the left breast. Took estrogen for 1 year 9 months. Physical Findings: A clinical breast exam by your physician is recommended on an annual basis and results should be correlated with mammographic findings. MG Screening Mammo w CAD Bilateral CC and MLO view(s) were taken. Prior study comparison: November 05, 2007, bilateral screening mammogram w/CAD. June 23, 2006, bilateral screening mammogram w/CAD. The breast tissue is almost entirely fat. There is chronic nodularity in the right breast. No significant changes when compared with prior studies. ASSESSMENT: Negative, BI-RAD 1 RECOMMENDATION: Routine screening mammogram of both breasts in 1 year.
== END | disposition home or self-care (01) ==
LOC: RADMAMWWP 15:19
PROVIDERS: ATTEND Family Medicine
DX: Z12.31 Encounter for screening mammogram for malignant neoplasm of breast (principal); M85.88 Other specified disorders of bone density and structure, other site; Z78.0 Asymptomatic menopausal state
CPT/HCPCS: 77067; 77080

== ENCOUNTER → 2023-01-21 | Outpatient (CLI) | payer MEDICARE, BC ==
--- NOTE | 2023-01-21 13:18 | BD ---
EXAMINATION TYPE: Axial Bone Density DATE OF EXAM: 01/21/2023 CLINICAL HISTORY: 73 years old Female. ICD-10 CODE: Z78.0 Asymptomatic menopausal state Height: 64 Weight: 200 FRAX RISK QUESTIONS: Family History (Parent hip fracture): yes, mother Glucocorticoids (More than 3mos): yes (Ex: prednisone, prednisolone, methylprednisolone, dexamethasone, and hydrocortisone). History of Fracture in Adulthood: no Secondary Osteoporosis: no RISK FACTORS HISTORY OF: Family History of Osteoporosis: no Active: yes Diet low in dairy products/other sources of calcium: yes Postmenopausal woman: yes, age 46 Lost more than 2 inches in height since high school: no Frequent falls: no MEDICATIONS: Prednisone or other steroids: yes How Lon+ years Additional Medications: yes multi vit, prednisone 5mg every other day, hbp meds, Motrin, 81 mg aspirin, cholesterol EXAM MEASUREMENTS: Bone mineral densitometry was performed using the [employer] System. Bone mineral density as measured about the Lumbar spine is: ----- L1-L4(G/cm2): 1.402 T Score Values are as follows: ----- L1: 1.5 ----- L2: 2.2 ----- L3: 1.9 ----- L4: 1.6 ----- L1-L4: 1.9 Z Score Values are as follows: ----- L1: 2.4 ----- L2: 3.1 ----- L3: 2.8 ----- L4: 2.5 ----- L1-L4: 2.7 Bone mineral density has: Increased 5.2% since study of: 06/09/2018 Bone mineral density about the R hip (g/cm2): 0.918 Bone mineral density about the L hip (g/cm2): 0.940 T Score values are as follows: -----R Neck: -1.7 -----L Neck: -1.0 -----R Total: -0.7 -----L Total: -0.5 Z Score values are as follows: -----R Neck: -0.4 -----L Neck: 0.3 -----R Total: 0.2 -----L Total: 0.4 Bone mineral density has: Decreased -0.4% since study of: 06/09/2018 FRAX%s: The graph provided illustrates a 25.0% chance for a major osteoporotic fx and a 8.8% chance f or the hips probability for fx in 10 years time. IMPRESSION: Normal (Values between +1 and -1 indicate normal bone mass). Consider repeating this study in 5 year s or sooner if there is some new clinical indication. NOTE: T-SCORE=SD OF THE YOUNG ADULT MEAN.
--- NOTE | 2023-01-22 07:40 | MM ---
Reason for Exam: Screening (asymptomatic). Last mammogram was performed 4 year(s) and 7 month(s) ago. Patient History: Menarche at age 13. First Full-Term at age 19. Left ovary removed at age 46. Right ovary removed at age 46. Hysterectomy at age 46. Postmenopausal. Estrogen for 1 year, 9 months. Excisional Biopsy on the Left side. 2001, Benign Excisional Biopsy on the left side. Maternal aunt had breast cancer, age 65. Risk Values: Melly 5 year model risk: 1.9%. NCI Lifetime model risk: 5.0%. Prior Study Comparison: 06/23/2006 Bilateral Screening Mammogram, [facility]. 11/05/2007 Bilateral Screening Mammogram, [facility]. 06/09/2018 Bilateral Screening Mammogram, [facility]. Tissue Density: There are scattered fibroglandular densities. Findings: Analyzed By CAD. Benign-appearing bilateral axillary lymph nodes are redemonstrated. Occasional scattered small benign appearing calcification bilaterally is redemonstrated. There is no suspicious group of microcalcifications or new suspicious mass in either breast. Overall Assessment: Benign, BI-RAD 2 Management: Screening Mammogram of both breasts in 1 year. A clinical breast exam by your physician is recommended on an annual basis and results should be correlated with mammographic findings. Electronically signed and approved by: Erik Strickland M.D.
== END | disposition home or self-care (01) ==
LOC: RADMAMWWP 11:54
PROVIDERS: ATTEND Family Medicine
DX: Z12.31 Encounter for screening mammogram for malignant neoplasm of breast (principal); M85.89 Other specified disorders of bone density and structure, multiple sites; Z78.0 Asymptomatic menopausal state; Z80.3 Family history of malignant neoplasm of breast
CPT/HCPCS: 77067; 77080

== ENCOUNTER → 2023-10-02 | Outpatient (CLI) | payer MEDICARE, BC ==
--- NOTE | 2023-10-02 15:35 | XR ---
EXAMINATION TYPE: XR chest 2V DATE OF EXAM: 10/02/2023 COMPARISON: 01/11/2018 INDICATION: Chronic cough x2 weeks TECHNIQUE: Single frontal view of the chest is obtained. FINDINGS: The heart size is normal. The pulmonary vasculature is normal. The lungs are clear. IMPRESSION: 1. No acute pulmonary process.
== END | disposition home or self-care (01) ==
LOC: RADXRMAIN 13:07
PROVIDERS: ATTEND Family Medicine
DX: R05.3 Chronic cough (principal)
CPT/HCPCS: 71046

== ENCOUNTER 2024-04-25 14:55 | Emergency (ER) | payer MEDICARE, BC ==
[2024-04-25 15:01] VITALS: RESP 18
--- NOTE | 2024-04-25 17:24 | ED ---
Eye Problem HPI - General Chief complaint: Eye Problems Stated complaint: Right eye pain, discharge, light sensitive Time Seen by Provider: 04/25/24 15:10 Source: patient, RN notes reviewed Mode of arrival: ambulatory Limitations: no limitations - History of Present Illness Initial comments: A 74-year-old female with past medical history of vasculities tolerating presents emergency department chief complaint of eye pain and swelling. Patient states that yesterday evening she began to notice that her right eye was painful. States that she woke up this morning with discharge from the right side. She denies photophobia or blurry vision or double vision. Patient has pain with eye movement with pain to the left. Follow-up. Patient states that she takes 25 mg of prednisone every other day due to history of vasculatides. She denies any foreign body, trauma or injury to the eye. States that she does wear contacts. - Related Data Home Medications Medication Instructions Recorded Confirmed Aspirin [Adult Low Dose Aspirin EC] 81 mg PO QAM 11/30/15 01/15/18 Cetirizine HCl [Zyrtec] 5 mg PO QAM PRN 11/30/15 01/15/18 Ibuprofen [Motrin] 400 mg PO Q8HR PRN 11/30/15 01/15/18 Krill/Om-3/Dha/Epa/Phospho/Ast 1 cap PO DAILY@1800 11/30/15 01/15/18 [[place]-3 Krill Oil 300 mg Sfgl] Multivitamins, Thera [Multivitamin 1 tab PO DAILY 11/30/15 01/15/18 (formulary)] predniSONE [Prednisone] 5 mg PO Q48H 11/30/15 01/15/18 Metoprolol Succinate [Toprol XL] 50 mg PO QAM 12/10/17 01/15/18 Hydrocodone/Acetaminophen [[place] 1 tab PO Q6HR PRN 01/10/18 01/15/18 5-325] Previous Rx's Medication Instructions Recorded Oseltamivir [Tamiflu] 75 mg PO Q12HR #4 cap 01/14/18 guaiFENesin-Coden 100-10MG/5ML 10 ml PO Q6H PRN cup 01/14/18 [Robitussin AC] Allergies Allergy/AdvReac Type Severity Reaction Status Date / Time Penicillins Allergy Rash/Hives Verified 04/25/24 15:01 Review of Systems ROS Statement: Those systems with pertinent positive or pertinent negative responses have been documented in the HPI. ROS Other: All systems not noted in ROS Statement are negative. 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 History of Any Multi-Drug Resistant Organisms: None Reported Past Surgical History: Back Surgery, Cholecystectomy, Hysterectomy, Orthopedic Surgery Additional Past Surgical History / Comment(s): sx: 1994 hysterectomy, bilateral knees scoped, biopsy to let rastafari to confirm vascularitis Past Anesthesia/Blood Transfusion Reactions: Postoperative Nausea & Vomiting (PONV) Past Psychological History: No Psychological Hx Reported Smoking Status: Never smoker Past Alcohol Use History: None Reported Past Drug Use History: None Reported - Past Family History Mother Additional Family Medical History / Comment(s): "TB at 20 but neg for 65 years until she passed" Father Additional Family Medical History / Comment(s): "scarlet fever at 16 & then had a heart condition after that" Brother(s) Family Medical History: Cancer Additional Family Medical History / Comment(s): jaw General Exam Limitations: no limitations General appearance: alert, in no apparent distress Head exam: Present: atraumatic, normocephalic, normal inspection Eye exam: Present: normal appearance, PERRL, EOMI. Absent: scleral icterus, conjunctival injection, periorbital swelling Expanded Eyelids: Swelling: Right Pupils: Regular, Round: Bilateral Sclera/Conjunctival: Injection: Right Visual acuity (R) = 20/: 20 Visual acuity (L) = 20/: 20 With correction: Yes (contacts) IOP (R) in mmH IOP (L) in mmH IOP measured with: Tonopen ENT exam: Present: normal exam, mucous membranes moist Neck exam: Present: normal inspection. Absent: tenderness, meningismus, lymphadenopathy Respiratory exam: Present: normal lung sounds bilaterally. Absent: respiratory distress, wheezes, rales, rhonchi, stridor Cardiovascular Exam: Present: regular rate, normal rhythm, normal heart sounds. Absent: systolic murmur, diastolic murmur, rubs, gallop, clicks GI/Abdominal exam: Present: soft, normal bowel sounds. Absent: distended, tenderness, guarding, rebound, rigid Extremities exam: Present: normal inspection, full ROM, normal capillary refill. Absent: tenderness, pedal edema, joint swelling, calf tenderness Back exam: Present: normal inspection Neurological exam: Present: alert, oriented X3, CN II-XII intact Psychiatric exam: Present: normal affect, normal mood Skin exam: Present: warm, dry, intact, normal color. Absent: rash Course Vital Signs 04/25/24 04/25/24 15:00 18:06 Temperature 97.8 F 98 F Pulse Rate 71 65 Respiratory 18 18 Rate Blood Pressure 150/74 128/80 O2 Sat by Pulse 97 99 Oximetry Medical Decision Making - Medical Decision Making Was pt. sent in by a medical professional or institution (, [facility], [facility]IGGING MAN, urgent care, hospital, or custodial...) When possible be specific @ -No Did you speak to anyone other than the patient for history (EMS, parent, family, police, friend...)? What history was obtained from this source @ -No Did you review nursing and triage notes (agree or disagree)? Why? @ -I reviewed and agree with nursing and triage notes Were old charts reviewed (outside hosp., previous admission, EMS record, old EKG, old radiological studies, urgent care reports/EKG's, custodial records)? Report findings @ -No old charts were reviewed Differential Diagnosis (chest pain, altered mental status, abdominal pain women, abdominal pain men, vaginal bleeding, weakness, fever, dyspnea, syncope, headache, dizziness, GI bleed, back pain, seizure, CVA, palpatations, mental health, musculoskeletal)? @ eye foreign body, corneal abrasion, or acute angle closure glaucoma, hyphema, keratitis, conjunctivitis, cyst is not all inclusive EKG interpreted by me (3pts min.). @ -none X-rays interpreted by me (1pt min.). @ -None done CT interpreted by me (1pt min.). @ -None done U/S interpreted by me (1pt. min.). @ -None done What testing was considered but not performed or refused? (CT, X-rays, U/S, labs)? Why? @ -None What meds were considered but not given or refused? Why? @ -None Did you discuss the management of the patient with other professionals (professionals i.e. , JOHANNA, RIGGING MAN, lab, RT, psych nurse, nursing home social worker, system operation superintendent, teacher, custody officer, dependency case manager)? Give summary @ -I discussed this case with my attending, Dr. Caputo, and personally evaluated the patient as well and directly visualized the corneal abrasion. Was smoking cessation discussed for >3mins.? @ -No Was critical care preformed (if so, how long)? @ -No Were there social determinants of health that impacted care today? How? (Homelessness, low income, unemployed, alcoholism, drug addiction, transportation, low edu. Level, literacy, decrease access to med. care, group home, rehab)? @ -No Was there de-escalation of care discussed even if they declined (Discuss DNR or withdrawal of care, Hospice)? DNR status @ -No What co-morbidities impacted this encounter? (DM, HTN, Smoking, COPD, CAD, Cancer, CVA, ARF, Chemo, Hep., AIDS, mental health diagnosis, sleep apnea, morbid obesity)? @ -None Was patient admitted / discharged? Hospital course, mention meds given and route, prescriptions, significant lab abnormalities, going to OR and other pertinent info. @ -Discharge. 74-year-old female with right eye pain. On examination patient's right eye is noted to be corneal injected with mild superior eyelid edema. On examination there are no obvious signs of foreign body. Patient's visual acuity is intact bilaterally, pupils are equal round and reactive. Patient's intraocular pressures are within normal range. Proparacaine drops used for anesthetizing the right eye and fluorescein stain was used to visualize the sclera and cornea with a Landaverde lamp. Direct visualization revealed a corneal abrasion to the eye. Patient was provided with first dose of antibiotic drops emergency department instructed to continue use of antibiotic drops outpatient. Recommend that patient follows up with food scientist this week for further evaluation. All questions answered at bedside and strict return parameters discussed with patient she is verbalized understanding. Case discussed with Dr. Caputo Undiagnosed new problem with uncertain prognosis? @ -No Drug Therapy requiring intensive monitoring for toxicity (Heparin, Nitro, Insulin, Cardizem)? @ -No Were any procedures done? @ -no Diagnosis/symptom? @ -corneal abrasion Acute, or Chronic, or Acute on Chronic? @ -acute Uncomplicated (without systemic symptoms) or Complicated (systemic symptoms)? @ -uncomplicated Side effects of treatment? @ -No Exacerbation, Progression, or Severe Exacerbation? @ -No Poses a threat to life or bodily function? How? (Chest pain, [place], [place], pneumonia, PE, COPD, DKA, ARF, appy, cholecystitis, CVA, Diverticulitis, Homicidal, S uicidal, threat to staff... and all critical care pts) @ -No Disposition Clinical Impression: Corneal abrasion Disposition: HOME SELF-CARE Condition: Good Instructions (If sedation given, give patient instructions): Corneal Abrasion (ED) Additional Instructions: Return to the emergency department for any new or worsening symptoms. Continue topical antibiotic drops 2 drops into the right eye every 6 hours for 5 days. Follow-up with your food scientist this week for further evaluation. Is patient prescribed a controlled substance at d/c from ED?: No Referrals: Felice Watters MD [Primary Care Provider] - 1-2 days Time of Disposition: 18:00
[2024-04-25] MEDS: PROPARACAINE 0.5% OPHTH DROPS 15 ML BTL RIGHT EYE STA (17:29)
[2024-04-25] MEDS: FLUORESCEIN STRIPS 1 MG STRIP RIGHT EYE ONE (17:29)
[2024-04-25 18:08] VITALS: BP 128/80; PULSE 65; TEMP 98
[2024-04-25] MEDS: TOBRAMYCIN 0.3% OPHTH DROPS 5 ML BTL RIGHT EYE STA (18:15)
== END 2024-04-25 18:21 | disposition home or self-care (01) ==
LOC: EC 14:55
DX: S05.01XA Injury of conjunctiva and corneal abrasion without foreign body, right eye, initial encounter (principal); Z88.0 Allergy status to penicillin; X58.XXXA Exposure to other specified factors, initial encounter
CPT/HCPCS: 99283

== ENCOUNTER → 2024-08-13 | Outpatient (CLI) | payer MEDICARE, BC ==
--- NOTE | 2024-08-15 09:42 | XR ---
EXAMINATION TYPE: XR lumbosacral spine min 4V DATE OF EXAM: 08/13/2024 12:15 PM COMPARISON: None. CLINICAL INDICATION: Female, 74 years old with history of M54.42 LUMBAGO WITH SCIATICA, LEFT SIDE, TECHNIQUE: 5 view(s) obtained. FINDINGS: There are 5 lumbar-type vertebral bodies. Pedicles are intact. No spondylolytic defects are evident. There is loss of disc height throughout the lumbar spine. Vacuum disc phenomenon is present at L4-5 a nd L5-S1. Vascular calcifications within the aorta. IMPRESSION: 1. 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 [facility], , 08/15/2024 9:39 AM
--- NOTE | 2024-08-16 11:30 | MM ---
Reason for Exam: Screening (asymptomatic). Last mammogram was performed 1 year(s) and 7 month(s) ago. Patient History: Menarche at age 13. First Full-Term at age 19. Left ovary removed at age 46. Right ovary removed at age 46. Hysterectomy at age 46. Postmenopausal. Estrogen for 1 year, 9 months. Excisional Biopsy on the Left side. 2001, Benign Excisional Biopsy on the left side. Maternal aunt had breast cancer, age 65. Risk Values: Melly 5 year model risk: 1.9%. NCI Lifetime model risk: 4.7%. Prior Study Comparison: 11/05/2007 Bilateral Screening Mammogram, [facility]. 06/09/2018 Bilateral Screening Mammogram, [facility]. 01/21/2023 Bilateral MG 3D screening mammo w/cad, [facility]. Tissue Density: The breasts are almost entirely fatty. Findings: Analyzed By CAD. There is no suspicious group of microcalcifications or new suspicious mass in either breast. Overall Assessment: Negative, BI-RAD 1 Management: Screening Mammogram of both breasts in 1 year. . Patient should continue monthly self-breast exams. A clinical breast exam by your physician is recommended on an annual basis. This exam should not preclude additional follow-up of suspicious palpable abnormalities. Note on Melly scores and lifetime risk: 1. A Melly score greater than 3% is considered moderate risk. If this is the case, consider specialist referral to assess eligibility for a risk reducing agent. 2. If overall lifetime risk for the development of breast cancer is 20% or higher, the patient may qualify for future screening with alternating mammogram and breast MRI. [facility], , 08/16/2024 11:27 AM. Electronically signed and approved by: Meet Mendoza M.D. [facility]iolog[facility]
== END | disposition home or self-care (01) ==
LOC: RADMAMWWP 11:24
PROVIDERS: ATTEND Family Medicine
DX: Z12.31 Encounter for screening mammogram for malignant neoplasm of breast (principal); M54.42 Lumbago with sciatica, left side; M47.816 Spondylosis without myelopathy or radiculopathy, lumbar region; M47.817 Spondylosis without myelopathy or radiculopathy, lumbosacral region; Z78.0 Asymptomatic menopausal state; Z80.3 Family history of malignant neoplasm of breast; Z90.722 Acquired absence of ovaries, bilateral
CPT/HCPCS: 72110; 77067